=== PATIENT | male | born 1930 | race African-American/Black ===

== ENCOUNTER 2020-03-18 00:29 | Inpatient (IN) | payer MEDICARE ==
[~2020-03-18] VITALS: Ht 185.4 cm; Wt 72.6 kg
[2020-03-18] MEDS ORDERED: Omnipaque-300 100ml vial INJ PRN (00:45)
[2020-03-18] MEDS ORDERED: Morphine Sulfate 2mg/ml Inj(IV/IM USE ONLY) IVP ONE ×3 (00:45→05:00)
[2020-03-18] MEDS ORDERED: BENAZEPRIL HCL10 MG ORAL ×2 (00:47→00:49)
[2020-03-18] MEDS ORDERED: PLAVIX75 MG ORAL (00:48)
[2020-03-18] MEDS ORDERED: ATORVASTATIN CA80 MG ORAL (00:48)
--- NOTE | 2020-03-18 00:49 | NUR ---
Nurse Note: Contact information - Sandy, daughter.
--- NOTE | 2020-03-18 00:50 | NUR ---
ED Nurse Note: Recieved pt from home, brought in by daughter with c/o "my father is having a heart attack", pt assisted out of car by er-tech and actively vomiting, pt brought in department and immediately gowned and placed on monitoring, pt states no chest pain and his stomach hurts at 8/10, pt continues to actively have emesis of un-digested food and bile like contents, pt has pacemaker, paced on monitoring, IV line placed, labs done and ekg, will resume care as ordered and closely monitor.
[2020-03-18 01:08] LABS: BASOPHILS % (AUTO) 0.8 % (0.0-2.0); EOSINOPHILS % (AUTO) 2.3 % (0.0-3.0); HEMATOCRIT 36.5 % (42.0-52.0); HEMOGLOBIN 12.4 G/DL (14.2-18.0); LYMPHOCYTES % (AUTO) 26.7 % (20.0-45.0); MEAN CORPUSCULAR VOLUME 86 FL (80-99); MONOCYTES % (AUTO) 9.2 % (1.0-10.0); PLATELET COUNT 153 K/UL (150-450); RED BLOOD COUNT 4.23 M/UL (4.70-6.10); RED CELL DISTRIBUTION WIDTH 13.3 % (11.6-14.8); WHITE BLOOD COUNT 11.1 K/UL (4.8-10.8)
--- NOTE | 2020-03-18 01:09 | Emergency Room Report ---
History of Present Illness General Chief Complaint: Chest Pain Source: Family Member Present Illness HPI 89-year-old male presents ED for evaluation. Daughter states that patient was having abdominal pain which started about an hour ago. Pain is epigastric, sharp, 8 out of 10, nonradiating. Denies shortness of breath. States symptoms started after eating some tacos which he states "looked bad". History of ulcer. History of pacemaker. Denies fevers or chills. Denies diarrhea. No other aggravating relieving factors. Denies any other associated symptoms Allergies: Coded Allergies: No Known Allergies (Unverified , 03/18/20) COVID-19 Screening Contact w/high risk pt: No Recent Travel to affected area: No Experienced COVID-19 symptoms?: No COVID-19 Testing performed TAX MANAGER CPA: No Patient History Past Medical History: none Past Surgical History: none Pertinent Family History: none Social History: Denies: smoking, alcohol use, drug use Immunizations: UTD Reviewed Nursing Documentation: PMH: Agreed; PSxH: Agreed Review of Systems All Other Systems: negative except mentioned in HPI Physical Exam Vital Signs Date Time Temp Pulse Resp B/P (MAP) Pulse Ox O2 Delivery O2 Flow Rate FiO2 03/18/20 00:38 98.1 60 20 169/67 (101) 97 Nasal Cannula Sp02 EP Interpretation: reviewed, normal General Appearance: no apparent distress, alert, GCS 15, non-toxic Head: normocephalic, atraumatic Eyes: bilateral eye normal inspection, bilateral eye PERRL ENT: hearing grossly normal, normal pharynx, no angioedema, normal voice Neck: full range of motion, supple/symm/no masses Respiratory: chest non-tender, lungs clear, normal breath sounds, speaking full sentences Cardiovascular #1: regular rate, rhythm, no edema Cardiovascular #2: 2+ carotid (R), 2+ carotid (L), 2+ radial (R), 2+ radial (L) , 2+ dorsalis pedis (R), 2+ dorsalis pedis (L) Gastrointestinal: normal bowel sounds, soft, non-distended, no guarding, no rebound, tenderness - epigastric Rectal: deferred Genitourinary: normal inspection, no CVA tenderness Musculoskeletal: back normal, normal range of motion, gait/station normal, non- tender Neurologic: alert, motor strength/tone normal, oriented x3, sensory intact, responsive, speech normal Psychiatric: judgement/insight normal, memory normal, mood/affect normal, no suicidal/homicidal ideation Reflexes: 3+ bicep (R), 3+ bicep (L), 3+ tricep (R), 3+ tricep (L), 3+ knee (R) , 3+ knee (L) Lymphatic: no adenopathy Medical Decision Making Diagnostic Impression: Primary Impression: ACS (acute coronary syndrome) Additional Impression: Abdominal pain Qualified Codes: R10.13 - Epigastric pain ER Course Hospital Course 89 yo M presents with epigastric pain, vomiting Differential diagnoses include: gastritis, ACS, pancreatitis Clinical course Patient placed on stretcher. security monitor. After initial history and physical I ordered labs, IV fluids, UA, pain medication, zofran, pepcid, CXR and CT scan Labs - minimal leukocytosis, Hb/Hct stable, electrolytes ok, trop x 1 negative EKG - paced rhythm, PVCS noted CXR - retrocardiac infiltrate CT abdomen and pelvis - no acute process Discussed with PMD Dr Juan M Mcfarland. Discussed with daughter in waiting room Given additional medications. no fever or cough reported Abx given. COVID swab sent Case discussed with Dr. Khoury and he agreed to accept the patient to his service for further care and support I feel this is a highly complex case requiring extensive working including EKG/ Rhythm strip, Xray/CT/US, Blood/urine lab work, repeat exams while in ED, and administration of strong opiates/narcotics for pain control, admission to hospital or close patient follow up. Diagnosis - ACS, abd pain Patient admitted to telemetry in serious condition Labs Test 03/18/20 00:35 White Blood Count 11.1 K/UL (4.8-10.8) Red Blood Count 4.23 M/UL (4.70-6.10) Hemoglobin 12.4 G/DL (14.2-18.0) Hematocrit 36.5 % (42.0-52.0) Mean Corpuscular Volume 86 FL (80-99) Mean Corpuscular Hemoglobin 29.3 PG (27.0-31.0) Mean Corpuscular Hemoglobin Concent 34.0 G/DL (32.0-36.0) Red Cell Distribution Width 13.3 % (11.6-14.8) Platelet Count 153 K/UL (150-450) Mean Platelet Volume 6.3 FL (6.5-10.1) Neutrophils (%) (Auto) 61.0 % (45.0-75.0) Lymphocytes (%) (Auto) 26.7 % (20.0-45.0) Monocytes (%) (Auto) 9.2 % (1.0-10.0) Eosinophils (%) (Auto) 2.3 % (0.0-3.0) Basophils (%) (Auto) 0.8 % (0.0-2.0) Sodium Level 145 MMOL/L (136-145) Potassium Level 3.6 MMOL/L (3.5-5.1) Chloride Level 105 MMOL/L (98-107) Carbon Dioxide Level 28 MMOL/L (21-32) Anion Gap 12 mmol/L (5-15) Blood Urea Nitrogen 15 mg/dL (7-18) Creatinine 1.2 MG/DL (0.55-1.30) Estimat Glomerular Filtration Rate > 60 mL/min (>60) Glucose Level 154 MG/DL (74-106) Calcium Level 9.1 MG/DL (8.5-10.1) Total Bilirubin 0.3 MG/DL (0.2-1.0) Aspartate Amino Transf (AST/SGOT) 23 U/L (15-37) Alanine Aminotransferase (ALT/SGPT) 30 U/L (12-78) Alkaline Phosphatase 68 U/L (46-116) Troponin I 0.024 ng/mL (0.000-0.056) Total Protein 7.6 G/DL (6.4-8.2) Albumin 3.6 G/DL (3.4-5.0) Globulin 4.0 g/dL Albumin/Globulin Ratio 0.9 (1.0-2.7) Lipase 174 U/L (73-393) EKG Diagnostic Results Rate: normal Rhythm: other - paced rhythm, PVCS noted ST Segments: other ASA given to the pt in ED: No Rhythm Strip Diag. Results EP Interpretation: yes Rhythm: no ectopy Chest X-Ray Diagnostic Results Chest X-Ray Diagnostic Results : Chest X-Ray Ordered: Yes # of Views/Limited/Complete: 1 View Indication: Chest Pain EP Interpretation: Yes Interpretation: no effusion, no pneumothorax, other - retrocardiac consolidaton Impression: Other - ?PNA Electronically Signed by: Electronically signed by Mario Shields MD CT/MRI/US Diagnostic Results CT/MRI/US Diagnostic Results : Imaging Test Ordered: CT A/P Impression COMPARISON: No relevant prior studies available. FINDINGS: Lung bases: Atelectasis at the lung bases. ABDOMEN: Liver: Unremarkable. No mass. Gallbladder and bile ducts: Unremarkable. No calcified stones. No ductal dilation. Pancreas: Unremarkable. No mass. No ductal dilation. Spleen: Unremarkable. No splenomegaly. Adrenals: Unremarkable. No mass. Kidneys and ureters: Nonobstructing nephrolithiasis bilaterally. Cortical scarring right greater than left. Few cortical cysts within the kidneys. No hydronephrosis. Stomach and bowel: Colonic diverticulosis without diverticulitis. PELVIS: Appendix: No findings to suggest acute appendicitis. Bladder: Unremarkable. No mass. Reproductive: Unremarkable as visualized. ABDOMEN and PELVIS: Intraperitoneal space: Unremarkable. No free air. No significant fluid collection. Bones/joints: Advanced lumbar degenerative changes. No acute fracture. No dislocation. Soft tissues: Unremarkable. Vasculature: Advanced aortobiiliac atherosclerotic calcifications moderate to severe stenosis within the celiac and SMA. No abdominal aortic aneurysm. Lymph nodes: Unremarkable. No enlarged lymph nodes. IMPRESSION: 1. No acute abnormality. 2. Advanced aortobiiliac atherosclerotic calcifications. 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 3. Colonic diverticulosis without diverticulitis. Last Vital Signs Date Time Temp Pulse Resp B/P (MAP) Pulse Ox O2 Delivery O2 Flow Rate FiO2 03/18/20 00:38 98.1 60 20 169/67 (101) 97 Nasal Cannula Status: improved Disposition: ADMITTED INPATIENT Condition: Serious Referrals: [facility],REFERRING (PCP) Mario Shields MD March 18, 2020 01:09
[2020-03-18 01:21] LABS: ANION GAP 12 mmol/L (5-15); BLOOD UREA NITROGEN 15 mg/dL (7-18); CALCIUM 9.1 MG/DL (8.5-10.1); CARBON DIOXIDE 28 MMOL/L (21-32); CHLORIDE 105 MMOL/L (98-107); CREATININE 1.2 MG/DL (0.55-1.30); POTASSIUM 3.6 MMOL/L (3.5-5.1); SODIUM 145 MMOL/L (136-145)
[2020-03-18 01:25] LABS: ALANINE AMINOTRANSFERASE 30 U/L (12-78); ALBUMIN 3.6 G/DL (3.4-5.0); ALBUMIN/GLOBULIN RATIO 0.9 (1.0-2.7); ALKALINE PHOSPHATASE 68 U/L (46-116); ASPARTATE AMINO TRANSFERASE 23 U/L (15-37); BILIRUBIN,TOTAL 0.3 MG/DL (0.2-1.0)
--- NOTE | 2020-03-18 01:30 | NUR ---
ED Nurse Note: Pt continues to rest in bed, meds slightly effective with pt actively having emesis again, and pain, pt re-medicated as ordered, remains on monitoring, IV fluids infusing, will continue to closely montior while waiting for imaging, pt kateryna is in ED lobby, went and spoke with her and gave updated info, daughter more calm now and thankful, pt aware of daughters request for info and gave permisison verbally.
--- NOTE | 2020-03-18 01:32 | Diagnostic Imaging Report ---
EXAM: XR Chest, 1 View CLINICAL HISTORY: CP TECHNIQUE: Frontal view of the chest. COMPARISON: No relevant prior studies available. FINDINGS: Lungs: Heterogeneous retrocardiac opacity, atelectasis versus infiltrate. Pleural space: No pleural effusion. No pneumothorax. Heart: Cardiomegaly status post CABG. Single pacemaker lead in the region of the right ventricle. Status post aortic valve replacement. IMPRESSION: Heterogeneous retrocardiac opacity, atelectasis versus infiltrate.
[2020-03-18 02:00] VITALS: BP 148/82
[2020-03-18] MEDS ORDERED: Pantoprazole Inj IVP ONE (02:00)
[2020-03-18] MEDS ORDERED: Metoclopramide 10mg/2ml Inj IVP ONE (02:00)
--- NOTE | 2020-03-18 02:08 | Diagnostic Imaging Report ---
EXAM: CT Abdomen and Pelvis With Intravenous Contrast CLINICAL HISTORY: ABD PAIN TECHNIQUE: Axial computed tomography images of the abdomen and pelvis with intravenous contrast. CTDI is 3.7 mGy and DLP is 185.4 mGy-cm. One or more of the following dose reduction techniques were used: automated exposure control, adjustment of the mA and/or kV according to patient size, use of iterative reconstruction technique. COMPARISON: No relevant prior studies available. FINDINGS: Lung bases: Atelectasis at the lung bases. ABDOMEN: Liver: Unremarkable. No mass. Gallbladder and bile ducts: Unremarkable. No calcified stones. No ductal dilation. Pancreas: Unremarkable. No mass. No ductal dilation. Spleen: Unremarkable. No splenomegaly. Adrenals: Unremarkable. No mass. Kidneys and ureters: Nonobstructing nephrolithiasis bilaterally. Cortical scarring right greater than left. Few cortical cysts within the kidneys. No hydronephrosis. Stomach and bowel: Colonic diverticulosis without diverticulitis. PELVIS: Appendix: No findings to suggest acute appendicitis. Bladder: Unremarkable. No mass. Reproductive: Unremarkable as visualized. ABDOMEN and PELVIS: Intraperitoneal space: Unremarkable. No free air. No significant fluid collection. Bones/joints: Advanced lumbar degenerative changes. No acute fracture. No dislocation. Soft tissues: Unremarkable. Vasculature: Advanced aortobiiliac atherosclerotic calcifications moderate to severe stenosis within the celiac and SMA. No abdominal aortic aneurysm. Lymph nodes: Unremarkable. No enlarged lymph nodes. IMPRESSION: 1. No acute abnormality. 2. Advanced aortobiiliac atherosclerotic calcifications. 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 3. Colonic diverticulosis without diverticulitis.
[2020-03-18] MEDS ORDERED: cefTRIAXone 1 GM in NS 55 ML IVPB ONE (02:30)
[2020-03-18] MEDS ORDERED: Azithromycin 500 MG in NS 275 ML IV ONE (02:30)
--- NOTE | 2020-03-18 03:00 | NUR ---
ED Nurse Note: Pt to be admitted to hospital, continues to have intermittent emesis, nausea and pain, pt daughter also gave further info, new labs done including Covid testing and pt on isolation precautions to r/o, v/s stable, pt tolerating IV fluids and IV antibiotics being given, daughter to go home, retrieved phone number, will continue to closely monitor pt while waiting for room for admission.
[2020-03-18 03:30] VITALS: BP 135/64
[2020-03-18] MEDS ORDERED: Sodium Chloride 2,200 ML IVLG ONE (03:45)
--- NOTE | 2020-03-18 04:40 | NUR ---
ED Nurse Note: Pt continues to rest quietly, using bedside commode, v/s stable, no cp, mild abd pain at 7/10, tp asked and will be re-medicated for pain, IV site patent, pt started on IV antibiotics, tolerating well, no s/s of adverse reaction noted, fluids infusing and repeat lactic level drawn and sent, will continue to monitor while waiting for room placement for admission.
[2020-03-18 05:00] VITALS: BP 138/73
[2020-03-18] MEDS ORDERED: Mylanta II UD 30ml ORAL ONE (05:00)
[2020-03-18] MEDS ORDERED: Lidocaine 2% Visc 15ml soln ORAL ONE (05:00)
[2020-03-18] MEDS ORDERED: Dicyclomine HCl 10mg/5ml oral soln ORAL ONE (05:00)
[2020-03-18 05:07] LABS: BILIRUBIN, URINE NEGATIVE (NEGATIVE); GLUCOSE, URINE (UA) NEGATIVE (NEGATIVE); KETONES,URINE NEGATIVE (NEGATIVE); LEUKOCYTE ESTERASE ,URINE 1+ (NEGATIVE); NITRITE,URINE NEGATIVE (NEGATIVE); PH,URINE 6.5 (4.5-8.0); PROTEIN,URINE 1+ (NEGATIVE); UROBILINOGEN,URINE NORMAL MG/DL (0.0-1.0)
[2020-03-18 05:15] LABS: COLOR,URINE YELLOW
[2020-03-18 05:16] LABS: APPEARANCE,URINE CLOUDY
[2020-03-18 05:25] VITALS: BP 156/64
--- NOTE | 2020-03-18 05:30 | NUR ---
ED Nurse Note: Pt taken to floor unit via gurney with acls and Covid precautions and protocols, pt wearing mask and covered during travel to floor, all belonging with pt ,bedside report given to aime Ji on unit, left pt resting quietly with nad noted and last of IV fluids infusing.
--- NOTE | 2020-03-18 05:30 | NUR ---
NURSE NOTES: rECEIVED PT FROM CRISSY CHRISTENSEN. PT AWAKE, ALERT, AND TALKATIVE. BED IN LOWEST POSITION. CALL LIGHT WITHIN REACH. PT SATTING AT 88% ON RA. PUI DROPLET PRECAUTIONS INITIATED. MD AT BEDSIDE. WILL CONTINUE TO MONITOR.
--- NOTE | 2020-03-18 06:10 | NUR ---
ED Nurse Note: Placed call tp pt daughter Sandy at [phone], gave updated info and pt room number, daughter very pleasant and thankful.
--- NOTE | 2020-03-18 07:12 | History and Physical ---
History of Present Illness General Date patient seen: March 18, 2020 Reason for Hospitalization: Chest PainNauseaVomitting Present Illness HPI Mr. Casey is a 89 YO gentleman with HLD, HTN, previous CVA , CAD s/p CABG (), arrhythmia s/p PM and gastric ulcer presenting with chief complaint of abdominal pain, nausea, and vomiting. Patient is extremely hard of hearing and a poor historian. History is obtained from the daughter ( Sandy) on the phone. During medical evaluation patient can only express pain in the epigastric area. Per the daughter, around midnight, patient began to experience worsening symptoms of nausea and dry heaving. Per the daughter, patient was alert, oriented but was diaphoretic and cold to touch. There is no report of CP, palpitation, SOB, near syncope or syncope. No reports of diarrhea, melena or hematochezia. Per the daughter, patient has a history of " stomach ulcer" for which he used to take Protonix; however discontinued about 3 months ago as he no longer experienced GI symptoms. Patient is otherwise complaint with his home medications. Upon arrival to the ED, vitals were within the normal limit. The CBC and CMP values did not reveal any significant abnormalities. The serum Troponin : 0.02. A 12-lead EKG showed paced rhythm with no ischemic signs. Patient is being admitted for further observation and medical evaluation. Allergies: Coded Allergies: No Known Allergies (Unverified , 03/18/20) COVID-19 Screening Contact w/high risk pt: No Recent Travel to affected area: No Experienced COVID-19 symptoms?: No Medication History Scheduled Atorvastatin Calcium* (Lipitor*), 80 MG ORAL BEDTIME, (Reported) Benazepril Hcl* (Benazepril Hcl*), 10 MG ORAL DAILY, (Reported) Benazepril Hcl* (Benazepril Hcl*), 10 MG ORAL DAILY, (Reported) Clopidogrel Bisulfate* (Plavix*), 75 MG ORAL DAILY, (Reported) Patient History Healthcare decision maker Resuscitation status Advanced Directive on File Review of Systems ROS Narrative Please refer to the HPI. Patient very hard of hearing and unable to provide useful information. History is obtained from the daughter on the phone. Physical Exam General Appearance: alert Lines, tubes and drains: peripheral HEENT: normocephalic, atraumatic Neck: non-tender, supple Respiratory/Chest: chest wall non-tender, lungs clear, normal breath sounds, no respiratory distress, no accessory muscle use Cardiovascular/Chest: normal peripheral pulses, normal rate, regular rhythm Abdomen: normal bowel sounds, tender Extremities: normal range of motion, non-tender, normal capillary refill Neurologic: no motor/sensory deficits Last 24 Hour Vital Signs Date Time Temp Pulse Resp B/P (MAP) Pulse Ox O2 Delivery O2 Flow Rate FiO2 03/18/20 05:30 98.0 60 16 138/73 99 Nasal Cannula 03/18/20 05:00 98.0 60 16 138/73 99 Nasal Cannula 03/18/20 03:30 98.0 60 16 135/64 99 Nasal Cannula 03/18/20 02:33 98.0 03/18/20 02:00 98.0 60 20 148/82 97 Nasal Cannula 03/18/20 01:32 98.0 03/18/20 00:50 60 20 Nasal Cannula 03/18/20 00:38 98.1 60 20 169/67 (101) 97 Nasal Cannula Laboratory Tests Test 03/18/20 00:35 03/18/20 02:40 03/18/20 04:54 White Blood Count 11.1 K/UL (4.8-10.8) H Red Blood Count 4.23 M/UL (4.70-6.10) L Hemoglobin 12.4 G/DL (14.2-18.0) L Hematocrit 36.5 % (42.0-52.0) L Mean Corpuscular Volume 86 FL (80-99) Mean Corpuscular Hemoglobin 29.3 PG (27.0-31.0) Mean Corpuscular Hemoglobin Concent 34.0 G/DL (32.0-36.0) Red Cell Distribution Width 13.3 % (11.6-14.8) Platelet Count 153 K/UL (150-450) Mean Platelet Volume 6.3 FL (6.5-10.1) L Neutrophils (%) (Auto) 61.0 % (45.0-75.0) Lymphocytes (%) (Auto) 26.7 % (20.0-45.0) Monocytes (%) (Auto) 9.2 % (1.0-10.0) Eosinophils (%) (Auto) 2.3 % (0.0-3.0) Basophils (%) (Auto) 0.8 % (0.0-2.0) Sodium Level 145 MMOL/L (136-145) Potassium Level 3.6 MMOL/L (3.5-5.1) Chloride Level 105 MMOL/L (98-107) Carbon Dioxide Level 28 MMOL/L (21-32) Anion Gap 12 mmol/L (5-15) Blood Urea Nitrogen 15 mg/dL (7-18) Creatinine 1.2 MG/DL (0.55-1.30) Estimat Glomerular Filtration Rate > 60 mL/min (>60) Glucose Level 154 MG/DL (74-106) H Calcium Level 9.1 MG/DL (8.5-10.1) Total Bilirubin 0.3 MG/DL (0.2-1.0) Aspartate Amino Transf (AST/SGOT) 23 U/L (15-37) Alanine Aminotransferase (ALT/SGPT) 30 U/L (12-78) Alkaline Phosphatase 68 U/L (46-116) Troponin I 0.024 ng/mL (0.000-0.056) Total Protein 7.6 G/DL (6.4-8.2) Albumin 3.6 G/DL (3.4-5.0) Globulin 4.0 g/dL Albumin/Globulin Ratio 0.9 (1.0-2.7) L Lipase 174 U/L (73-393) Lactic Acid Level 3.70 mmol/L (0.4-2.0) H 1.90 mmol/L (0.66-2.22) Urine Color Yellow Urine Appearance Cloudy Urine pH 6.5 (4.5-8.0) Urine Specific Waller 1.010 (1.005-1.035) Urine Protein 1+ (NEGATIVE) H Urine Glucose (UA) Negative (NEGATIVE) Urine Ketones Negative (NEGATIVE) Urine Blood 2+ (NEGATIVE) H Urine Nitrite Negative (NEGATIVE) Urine Bilirubin Negative (NEGATIVE) Urine Urobilinogen Normal MG/DL (0.0-1.0) Urine Leukocyte Esterase 1+ (NEGATIVE) H Urine RBC 2-4 /HPF (0 - 0) H Urine WBC 0-2 /HPF (0 - 0) Urine Squamous Epithelial Cells Moderate /LPF (NONE/OCC) H Urine Amorphous Sediment Many /LPF (NONE) H Urine Bacteria Many /HPF (NONE) H Height (Feet): 6 Height (Inches): 1.00 Weight (Pounds): 160 Medications Current Medications Medications (Trade) Dose Ordered Sig/Lilia Route PRN Reason Start Time Stop Time Status Last Admin Dose Admin Iohexol (OMNIPAQUE-300 100ml) 100 ml NOW PRN INJ Radiology Procedure 03/18/20 00:45 03/20/20 00:40 Sodium Chloride 2,200 ml @ 700 mls/hr Q3H9M ONCE IVLG 03/18/20 03:45 03/18/20 06:53 03/18/20 04:03 Assessment/Plan Assessment/Plan: Mr. Casey is a 89 YO gentleman with HLD, HTN, previous CVA , CAD s/p CABG (), arrhythmia s/p PM and gastric ulcer presenting with acute onset of epigastric abdominal pain, nausea, and vomiting. #Epigastric abdominal pain #Nausea and vomiting #Hx of GI ulcer -Gastroduodenal ulcer, GERD, acute pancreatitis remain in the DDx. -Place in observation. -Keep NPO except for PO meds -Protonix 40 MG PO QD. -LFTs and serum lipase levels wnl. -CT A/P unremarkable for any acute abnormalities; however suggestive of moderate to severe stenosis within the celiac and SMA -Will obtain GI consult for further evaluation. #Atypical Chest pain -Troponin: 0.02 -EKG: paced rhythm; No prior EKG available for comparison -Continue to trend serum troponin. -Resume home Plavix and Statin. -2D TTE. -Will consult cardiology for further evaluation. -CXR suggestive of retrocardiac infiltrate (possible PNA vs. atelectasis). Will hold off treatment with antibiotics at this point given no other signs/symptoms of pneumonia. #HLD #CAD s/p CABG () #Hx of cardiac arrhythmia s/p PM #Hx of aortic stenosis s/p AVR -Will resume home Lipitor 80 MG PO QD. -Will resume home Plavix 75 MG PO QD. -Per daughter patient on no anticoagulation. -Continuous cardiac monitoring. #Essential Hypertension: -Resume home Amlodipine 10 MG PO QD. -Resume home Benazepril 10 MG PO QD. -Continue to monitor. #Dementia -Resume home Donepezil. 72 minutes spent on the patient's case, coordination of care, and counseling. Case discussed extensively with the patient's daughter (Sandy) on the phone. Case discussed with RN at the bedside. Josse Richter M.D. March 18, 2020 07:11
[2020-03-18 08:00] VITALS: BP 145/80
[2020-03-18] MEDS ORDERED: Milk of Magnesia 30ml Ud ORAL PRN (08:00)
[2020-03-18] MEDS ORDERED: Acetaminophen 650 MG SUPP RECTAL PRN (08:00)
--- NOTE | 2020-03-18 08:39 | NUR ---
HAND-OFF: Report given to CRISSY BARTH. PT STABLE.
--- NOTE | 2020-03-18 08:45 | NUR ---
NURSE NOTES: Received report from Margy Rawls RN. Patient in supine position, sleeping, responds to name, on 2 liters nasal cannula, bed in lowest posiiton, call light within reach, in no apparent distress.
[2020-03-18] MEDS ORDERED: Docusate 100mg cap ORAL SCH (09:00)
[2020-03-18] MEDS ORDERED: Heparin 5000 units/ml inj SUBQ SCH (09:00)
[2020-03-18] MEDS ORDERED: Benazepril 10mg tab ORAL SCH ×2 (09:00)
[2020-03-18 09:28] LABS: HEMATOCRIT 38.9 % (42.0-52.0); HEMOGLOBIN 13.6 G/DL (14.2-18.0); MEAN CORPUSCULAR VOLUME 86 FL (80-99); PLATELET COUNT 152 K/UL (150-450); RED CELL DISTRIBUTION WIDTH 13.5 % (11.6-14.8); WHITE BLOOD COUNT 12.7 K/UL (4.8-10.8)
[2020-03-18 10:03] LABS: ALANINE AMINOTRANSFERASE 32 U/L (12-78); ALBUMIN 3.9 G/DL (3.4-5.0); ALKALINE PHOSPHATASE 69 U/L (46-116); ANION GAP 12 mmol/L (5-15); ASPARTATE AMINO TRANSFERASE 27 U/L (15-37); BILIRUBIN,TOTAL 0.4 MG/DL (0.2-1.0); BLOOD UREA NITROGEN 12 mg/dL (7-18); CALCIUM 8.8 MG/DL (8.5-10.1); CARBON DIOXIDE 25 MMOL/L (21-32); CHLORIDE 106 MMOL/L (98-107); CHOLESTEROL 103 MG/DL (< 200); CREATININE 1.1 MG/DL (0.55-1.30); HDL CHOLESTEROL 53 MG/DL (40-60); POTASSIUM 4.5 MMOL/L (3.5-5.1); SODIUM 143 MMOL/L (136-145); TRIGLYCERIDES 48 MG/DL (30-150)
--- NOTE | 2020-03-18 10:49 | NUR ---
NURSE NOTES: Received a call from Aly Garcia of [facility] with medical group notifying that patient is to be transferred to [facility] and asked for History and Physical, Labs and Face Sheet to be faxed to [phone]. Aly Garcia indicated that Dr. Hernandez and Dr. Daljit Lopez had a peer to per phonce call. I notified Dr. Sanford Prajapati and received order to transfer patient to [facility] once telemetry bed is available. I faxed the requested information to Aly Garcia.
[2020-03-18 12:00] VITALS: BP 157/71
[2020-03-18] MEDS ORDERED: Piperacillin/Tazobactam 3.375 GM in NS 110 ML IVPB SCH (14:00)
--- NOTE | 2020-03-18 14:05 | Cardiac Electrophysiology PN ---
Subjective Subjective [id number] Objective Last 24 Hour Vital Signs Date Time Temp Pulse Resp B/P (MAP) Pulse Ox O2 Delivery O2 Flow Rate FiO2 03/18/20 12:00 98.0 61 18 157/71 (99) 95 03/18/20 12:00 60 03/18/20 09:25 60 145/80 03/18/20 09:24 145/80 03/18/20 09:00 Nasal Cannula 2.0 03/18/20 08:00 97.9 60 20 145/80 (101) 96 03/18/20 08:00 60 03/18/20 07:56 Nasal Cannula 2.0 03/18/20 05:30 98.0 60 16 138/73 99 Nasal Cannula 03/18/20 05:25 97.5 60 156/64 (94) 89 03/18/20 05:00 98.0 60 16 138/73 99 Nasal Cannula 03/18/20 03:30 98.0 60 16 135/64 99 Nasal Cannula 03/18/20 02:33 98.0 03/18/20 02:00 98.0 60 20 148/82 97 Nasal Cannula 03/18/20 01:32 98.0 03/18/20 00:50 60 20 Nasal Cannula 03/18/20 00:38 98.1 60 20 169/67 (101) 97 Nasal Cannula Laboratory Tests Test 03/18/20 00:35 03/18/20 02:40 03/18/20 04:54 03/18/20 08:48 White Blood Count 11.1 K/UL (4.8-10.8) H 12.7 K/UL (4.8-10.8) H Red Blood Count 4.23 M/UL (4.70-6.10) L 4.50 M/UL (4.70-6.10) L Hemoglobin 12.4 G/DL (14.2-18.0) L 13.6 G/DL (14.2-18.0) L Hematocrit 36.5 % (42.0-52.0) L 38.9 % (42.0-52.0) L Mean Corpuscular Volume 86 FL (80-99) 86 FL (80-99) Mean Corpuscular Hemoglobin 29.3 PG (27.0-31.0) 30.2 PG (27.0-31.0) Mean Corpuscular Hemoglobin Concent 34.0 G/DL (32.0-36.0) 34.9 G/DL (32.0-36.0) Red Cell Distribution Width 13.3 % (11.6-14.8) 13.5 % (11.6-14.8) Platelet Count 153 K/UL (150-450) 152 K/UL (150-450) Mean Platelet Volume 6.3 FL (6.5-10.1) L 6.5 FL (6.5-10.1) Neutrophils (%) (Auto) 61.0 % (45.0-75.0) % (45.0-75.0) Lymphocytes (%) (Auto) 26.7 % (20.0-45.0) % (20.0-45.0) Monocytes (%) (Auto) 9.2 % (1.0-10.0) % (1.0-10.0) Eosinophils (%) (Auto) 2.3 % (0.0-3.0) % (0.0-3.0) Basophils (%) (Auto) 0.8 % (0.0-2.0) % (0.0-2.0) Sodium Level 145 MMOL/L (136-145) 143 MMOL/L (136-145) Potassium Level 3.6 MMOL/L (3.5-5.1) 4.5 MMOL/L (3.5-5.1) Chloride Level 105 MMOL/L (98-107) 106 MMOL/L (98-107) Carbon Dioxide Level 28 MMOL/L (21-32) 25 MMOL/L (21-32) Anion Gap 12 mmol/L (5-15) 12 mmol/L (5-15) Blood Urea Nitrogen 15 mg/dL (7-18) 12 mg/dL (7-18) Creatinine 1.2 MG/DL (0.55-1.30) 1.1 MG/DL (0.55-1.30) Estimat Glomerular Filtration Rate > 60 mL/min (>60) > 60 mL/min (>60) Glucose Level 154 MG/DL (74-106) H 139 MG/DL (74-106) H Calcium Level 9.1 MG/DL (8.5-10.1) 8.8 MG/DL (8.5-10.1) Total Bilirubin 0.3 MG/DL (0.2-1.0) 0.4 MG/DL (0.2-1.0) Aspartate Amino Transf (AST/SGOT) 23 U/L (15-37) 27 U/L (15-37) Alanine Aminotransferase (ALT/SGPT) 30 U/L (12-78) 32 U/L (12-78) Alkaline Phosphatase 68 U/L (46-116) 69 U/L (46-116) Troponin I 0.024 ng/mL (0.000-0.056) 0.015 ng/mL (0.000-0.056) Total Protein 7.6 G/DL (6.4-8.2) 8.0 G/DL (6.4-8.2) Albumin 3.6 G/DL (3.4-5.0) 3.9 G/DL (3.4-5.0) Globulin 4.0 g/dL 4.1 g/dL Albumin/Globulin Ratio 0.9 (1.0-2.7) L 1.0 (1.0-2.7) Lipase 174 U/L (73-393) 122 U/L (73-393) Lactic Acid Level 3.70 mmol/L (0.4-2.0) H 1.90 mmol/L (0.66-2.22) 2.20 mmol/L (0.4-2.0) H Urine Color Yellow Urine Appearance Cloudy Urine pH 6.5 (4.5-8.0) Urine Specific [place] 1.010 (1.005-1.035) Urine Protein 1+ (NEGATIVE) H Urine Glucose (UA) Negative (NEGATIVE) Urine Ketones Negative (NEGATIVE) Urine Blood 2+ (NEGATIVE) H Urine Nitrite Negative (NEGATIVE) Urine Bilirubin Negative (NEGATIVE) Urine Urobilinogen Normal MG/DL (0.0-1.0) Urine Leukocyte Esterase 1+ (NEGATIVE) H Urine RBC 2-4 /HPF (0 - 0) H Urine WBC 0-2 /HPF (0 - 0) Urine Squamous Epithelial Cells Moderate /LPF (NONE/OCC) H Urine Amorphous Sediment Many /LPF (NONE) H Urine Bacteria Many /HPF (NONE) H Differential Total Cells Counted 100 Neutrophils % (Manual) 80 % (45-75) H Lymphocytes % (Manual) 9 % (20-45) L Monocytes % (Manual) 10 % (1-10) Eosinophils % (Manual) 1 % (0-3) Basophils % (Manual) 0 % (0-2) Band Neutrophils 0 % (0-8) Platelet Estimate Adequate Platelet Morphology Normal Red Blood Cell Morphology Normal Hemoglobin A1c 5.6 % (4.3-6.0) Magnesium Level 2.0 MG/DL (1.8-2.4) Triglycerides Level 48 MG/DL (30-150) Cholesterol Level 103 MG/DL (< 200) LDL Cholesterol 51 mg/dL (<100) HDL Cholesterol 53 MG/DL (40-60) Cholesterol/HDL Ratio 1.9 (3.3-4.4) L Thyroid Stimulating Hormone (TSH) 0.963 uiU/mL (0.358-3.740) Test 03/18/20 12:10 Lactic Acid Level 3.40 mmol/L (0.66-2.22) H Owen Christian MD March 18, 2020 14:05
--- NOTE | 2020-03-18 15:06 | NUR ---
NURSE NOTES: Patient being transferred to [facility]. Patient discharging with [facility], unit number [id number]. Report given to CRISSY Quiroz, Charge Nurse. Patient discharged in stable condition, no chest pain, no SOB, no vomiting. Sandy, Daughter, notified by Laura Charge Nurse, RN.
--- NOTE | 2020-03-18 16:59 | Consultation ---
DATE OF CONSULTATION: 03/18/2020 CONSULTING PHYSICIAN: Ruiz Cota MD. CHIEF COMPLAINT: Nausea, vomiting, abdominal pain. HISTORY OF PRESENT ILLNESS: Most of the history per chart. An 89-year-old male with past medical history of hypertension, hypercholesteremia, CVA, coronary artery disease and CABG, cardiac arrhythmias, status post pacemaker placement, history of gastric ulceration on Protonix, patient has been taken months ago, presented to the hospital with complaint of nausea, vomiting, abdominal pain. Most of history per chart and per daughter. In the ER, patient had a CT of the abdomen and pelvis done, showed evidence of diverticulosis. 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 PAST MEDICAL HISTORY: Significant for: 1. History of coronary artery disease, status post CABG in . 2. History of pacemaker placement. 3. Hypertension. 4. Hyperlipidemia. 5. History of gastric ulcerations. ALLERGIES: No known allergies. MEDICATIONS: Please see medication reconciliation list. PAST SURGICAL HISTORY: 1. History of pacemaker placement. 2. History of gastric bypass in . REVIEW OF SYSTEMS: Limited. PHYSICAL EXAMINATION: VITAL SIGNS: Temperature 98, pulse 60, respirations 16, blood pressure 138/73. HEENT: Normocephalic, atraumatic. Sclerae anicteric. NECK: Supple. No evidence of obvious lymphadenopathy. CARDIOVASCULAR: Regular rate and rhythm. There is a pacemaker in the left chest area. LUNGS: Decreased breath sounds bilaterally based on the supine exam. ABDOMEN: Soft. Bowel sounds are present. Minimal tenderness to palpation in the epigastric area. No rebound. No guarding. No peritoneal sign. EXTREMITIES: No cyanosis, no clubbing, no edema. LABORATORY DATA: White count is 11, hemoglobin 12, hematocrit 36, platelet count is 153. Sodium 145, potassium 3.6, creatinine is 1.2. Lactic acid initially was 3.7, now is 1.9. Troponin normal. Liver function tests normal. ASSESSMENT AND PLAN: This is an 89-year-old male with history of coronary artery disease. 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 Protonix has been started. We are going to continue 1 tablet daily of 40 mg. Start the patient on clear liquid diet and we will advance as tolerated. We will order anemia workup. Order stool studies for OB. Vascular surgeon has been consulted to see the patient for the celiac stenosis. We will see this patient on daily basis and make further recommendation as we go along. I want to thank, Dr. Hart, for this kind referral. Ruiz Cota M.D. DR: MIKE JOB#: [id number] CC: Dr. Hart
--- NOTE | 2020-03-18 19:00 | Consultation ---
DATE OF CONSULTATION: 03/18/2020 CARDIOLOGY CONSULTATION CONSULTING PHYSICIAN: Owen Christian MD. REFERRING PHYSICIAN: Los Wiggins MD. REASON FOR CONSULTATION: Management of hypertension in a patient with coronary artery disease, arrhythmia, and pacemaker. HISTORY OF PRESENT ILLNESS: Patient is an 89-year-old gentleman with hypertension, hyperlipidemia, CVA, and history of coronary artery bypass graft in as well as history of permanent pacemaker implantation, and gastric ulcer who was brought to the emergency room for abdominal pain, nausea, and vomiting. Patient is extremely hard of hearing and very poor historian. Patient denied any chest pain or shortness of breath or palpitation. As per daughter, patient has history of stomach ulcer for which he takes Protonix that was stopped about 3 months ago. Patient noted to have troponin level of 0.32 and EKG showed atrial fibrillation, paced rhythm, and Cardiology consultation was obtained for further evaluation. REVIEW OF SYSTEMS: Negative other than what is mentioned in the history of present illness. PAST MEDICAL HISTORY: As mentioned above. MEDICATIONS: Per reconciliation. SOCIAL HISTORY: Does not smoke or drink alcohol. PHYSICAL EXAMINATION: VITAL SIGNS: Show blood pressure of 157/71, pulse 60, respirations 18, temperature 98. HEAD AND NECK: Showed no JVD. LUNGS: Coarse rhonchi. CARDIOVASCULAR: Shows regular S1 and S2 with no gallop. Pacemaker in the subclavian area. ABDOMEN: Soft. EXTREMITIES: No pitting edema. LABORATORY AND DIAGNOSTIC DATA: His EKG showed atrial flutter with controlled ventricular response and ventricularly paced rhythm. His echocardiogram showed ejection fraction of 55%. His labs showed white count of 12.7, hemoglobin 13.2, hematocrit 39, and platelet count of 152. Sodium 142, potassium 4.5, BUN of 12, creatinine 1.1. Troponin is negative x2. ASSESSMENT AND PLAN: 1. Atrial flutter. Rate is currently controlled after he is ventricularly paced. Patient is off of any AV williams blocking agent. Currently, patient is off anticoagulation. Going to get more information from patient's home medication. 2. Coronary artery disease with history of coronary artery bypass graft, on Plavix and Lipitor. 3. Status post pacemaker. Brand is not clear. We will try to get information from the family. 4. Hypertension, on amlodipine 10 mg daily and benazepril 10 mg b.i.d. 5. Abdominal pain and gastroesophageal reflux disease. Thank you very much for allowing me to participate in the care of this patient. Please do not hesitate to contact me for any questions regarding my evaluation. Of note, patient will be transferred to [facility] in view of patient's HMO requirement. Owen Christian M.D. DR: ANN-MARIE JOB#: [id number] CC:
--- NOTE | 2020-03-18 19:16 | Discharge Summary ---
Discharge Summary Hospital Course Date of Admission March 18, 2020 at 01:55 Date of Discharge March 18, 2020 at 16:00 Admitting Diagnosis CP/ABD pain HPI Demetri Casey is a 89 year old male who was admitted on March 18, 2020 at 01: 55 for Chest Pain/Abdominal Pain Discharge Discharge Vital Signs Last Vital Signs Date Time Temp Pulse Resp B/P (MAP) Pulse Ox O2 Delivery O2 Flow Rate FiO2 03/18/20 12:00 98.0 61 18 157/71 (99) 95 03/18/20 09:00 Nasal Cannula 2.0 Discharge Disposition Patient was discharged to [facility] March 18, 2020 19:16
[2020-03-18] MEDS ORDERED: Atorvastatin 80mg tab ORAL SCH ×2 (21:00)
--- NOTE | 2020-03-20 14:44 | NUR ---
*-* INSURANCE *-* ALL AVAILABLE CLINICALS HAVE BEEN FAXED TO: [employer] #[phone] FAX#[phone]
== END 2020-03-18 16:00 | DRG 392 ==
LOC: EMR 00:43 → 2E 01:55 → EDBEDREQ 04:19 → 2E 05:39
DX: R10.13 Epigastric pain (principal); R07.89 Other chest pain; K21.9 Gastro-esophageal reflux disease without esophagitis; I10 Essential (primary) hypertension; Z95.0 Presence of cardiac pacemaker; E78.5 Hyperlipidemia, unspecified; Z86.73 Personal history of transient ischemic attack (TIA), and cerebral infarction without residual deficits; R11.2 Nausea with vomiting, unspecified; Z95.1 Presence of aortocoronary bypass graft; F03.90 Unspecified dementia, unspecified severity, without behavioral disturbance, psychotic disturbance, mood disturbance, and anxiety; K57.90 Diverticulosis of intestine, part unspecified, without perforation or abscess without bleeding; I70.8 Atherosclerosis of other arteries
CPT/HCPCS: 36415; 71045; 74177; 80053; 80061; 81003; 83036; 83605; 83690; 83735; 84443; 84484; 85007; 85025; 87040; 87086; 87635; 93005; 93306; 96365; 96368; 96375; 96376; 99285; J2405; J2765; J7030